=== PATIENT | female | born 1945 | race Caucasian/White ===

== ENCOUNTER 2016-11-08 08:35 | Outpatient (CLI) | payer OTHER ==
--- NOTE | 2016-11-08 10:34 | DIAGNOSTIC IMAGING REPORT ---
PROCEDURE: MR UPPER EXTREMITY W/O CONT-RT INDICATION: RT SHOULDER IMPINGEMENT SYNDROME TECHNIQUE: PD and FAT-SAT PD, axial, and coronal-oblique images. PD and STIR sagittal-oblique images. COMPARISON: None. FINDINGS: Moderate AC joint degenerative changes and type 2 acromion resulting in impingement. Marked thickening of the supraspinatus tendon (10 mm) with increased signal consistent with tendinosis. There is also a full-thickness tear of the distal supraspinatus tendon, greatest dimension 10 mm. Associated moderate joint effusion. Tendinosis of the long head of the bicipital tendon. Normal labrum as visualized. Normal glenohumeral ligaments. 1 cm subchondral cyst of the humeral head adjacent to the greater tuberosity. No suspicious osseous lesions. IMPRESSION: 1. N.p.o. secondary to type 2 acromion and moderate AC joint degenerative changes 2. Severe rotator cuff tendinosis with full-thickness tear of the distal supraspinatus tendon (10 mm tear) 3. Bicipital long head tendinosis 4. Moderate joint effusion
== END 2016-11-08 23:00 ==
LOC: MRI SRH 08:35
DX: M75.21 Bicipital tendinitis, right shoulder (principal); M25.411 Effusion, right shoulder; M75.81 Other shoulder lesions, right shoulder; M75.41 Impingement syndrome of right shoulder